=== PATIENT | female | born 1945 | race Two or more races ===

== ENCOUNTER → 2022-11-14 | Outpatient (CLI) | payer OTHER ==
[2022-11-14 12:13] LABS: Potassium 4.8 mmol/L (3.5-5.1)
[2022-11-14 12:18] LABS: BUN/Creatinine Ratio 12.5 (10.0-20.0)
[2022-11-14 17:03] LABS: Micro Albumin < 5.00 mg/L (0-30.0)
[2022-11-14 17:05] LABS: Creatinine, Urine 11 mg/dL (30.0-125.0)
== END | disposition home or self-care (01) ==
LOC: LAB 10:34
PROVIDERS: ATTEND Family Medicine
DX: I12.9 Hypertensive chronic kidney disease with stage 1 through stage 4 chronic kidney disease, or unspecified chronic kidney disease (principal); E11.22 Type 2 diabetes mellitus with diabetic chronic kidney disease; N18.9 Chronic kidney disease, unspecified; E11.65 Type 2 diabetes mellitus with hyperglycemia; E78.2 Mixed hyperlipidemia
CPT/HCPCS: 36415; 80048; 80061; 82043; 82570; 83036

== ENCOUNTER → 2022-12-28 | Outpatient (CLI) | payer OTHER | END | disposition home or self-care (01) | LOC: LAB 14:36 | PROVIDERS: ATTEND Family Medicine | DX: T78.40XA Allergy, unspecified, initial encounter (principal); X58.XXXA Exposure to other specified factors, initial encounter | CPT/HCPCS: 82785 ==

== ENCOUNTER → 2023-05-19 | Outpatient (CLI) | payer OTHER ==
[2023-05-19 10:33] LABS: Basophils # (auto) 0 10 ^3/uL (0-0.2); Basophils % (auto) 0.5 % (0.0-2.0); Eosinophils # (auto) 0.2 10 ^3/uL (0-0.8); Eosinophils % (auto) 3.8 % (0.0-7.0); Hematocrit 39.7 % (36.0-46.0); Hemoglobin 13.4 g/dL (12.2-16.2); Lymphocytes # (auto) 1.6 10 ^3/uL (0.4-5.4); Lymphocytes % (auto) 30.7 % (10.0-50.0); Mean Corpuscular Hemoglobin 32.1 pg (28.0-32.0); Mean Corpuscular Hgb Conc. 33.8 g/dL (32.0-36.0); Monocytes # (auto) 0.5 10 ^3/uL (0-1.3); Monocytes % (auto) 9.6 % (0.0-12.0); Neutrophils # (auto) 2.8 10 ^3/uL (1.6-8.6); Neutrophils % (auto) 55.4 % (37.0-80.0); Nucleated Red Blood Cells % 0.1 %; Red Blood Cells 4.18 10^6/uL (4.0-5.20); Red Cell Distribution Width 13.6 % (11.8-14.3); White Blood Cell 5.1 10^3/uL (4.4-10.8)
[2023-05-19 10:40] LABS: Urine Bacteria FEW /hpf (None Seen); Urine Blood Negative /uL (Negative); Urine Clarity Clear (Clear); Urine Color Yellow (Yellow); Urine Mucus FEW (None Seen); Urine Protein, UAD Negative (Negative); Urine Specific Gravity 1.022 (1.001-1.035); Urine Urobilinogen Normal (Negative); Urine WBC <1 /hpf (0 - 5)
[2023-05-19 11:06] LABS: Alanine Aminotransferase 26 U/L (7-40); Albumin 4.3 g/dL (3.2-4.8); Alkaline Phosphatase 57 U/L (46-116); Anion Gap 5 (5-15); Aspartate Aminotransferase 30 U/L (13-40); BUN/Creatinine Ratio 15.8 (10.0-20.0); Bilirubin, Total 1.2 mg/dL (0.2-1.0); Blood Urea Nitrogen 12 mg/dL (9-23); Calcium 9.7 mg/dL (8.5-10.1); Carbon Dioxide 27 mmol/L (20-30); Chloride 106 mmol/L (98-107); Cholesterol 146 mg/dL (< 200); Glucose 99 mg/dL (74-106); HDL Cholesterol 62 mg/dL (40-59); LDL Cholesterol 74 mg/dL (< 100); Potassium 4.9 mmol/L (3.5-5.1); Sodium 138 mmol/L (136-145); Total Protein 6.8 g/dL (5.7-8.2); Triglycerides 83 mg/dL (< 150)
[2023-05-21 04:06] LABS: Chlamydia Trachomatis, NAA Negative (Negative); Neisseria gonorrhoeae, NAA Negative (Negative)
== END | disposition home or self-care (01) ==
LOC: LAB 09:55
PROVIDERS: ATTEND Family Medicine
DX: Z00.01 Encounter for general adult medical examination with abnormal findings (principal); E11.628 Type 2 diabetes mellitus with other skin complications
CPT/HCPCS: 36415; 80053; 80061; 81001; 82043; 83036; 84443; 85025; 87086

== ENCOUNTER → 2023-09-12 | Outpatient (CLI) | payer OTHER ==
[2023-09-12 09:27] LABS: Alanine Aminotransferase 18 U/L (7-40); Albumin 4.3 g/dL (3.2-4.8); Alkaline Phosphatase 65 U/L (46-116); Anion Gap 7 (5-15); Aspartate Aminotransferase 15 U/L (13-40); BUN/Creatinine Ratio 10.5 (10.0-20.0); Blood Urea Nitrogen 8 mg/dL (9-23); Calcium 9.9 mg/dL (8.5-10.1); Carbon Dioxide 27 mmol/L (20-30); Chloride 105 mmol/L (98-107); Glucose 146 mg/dL (74-106); LDL Cholesterol 116 mg/dL (< 100); Potassium 5.3 mmol/L (3.5-5.1); Sodium 139 mmol/L (136-145); Triglycerides 152 mg/dL (< 150)
[2023-09-12 09:28] LABS: Bilirubin, Total 0.8 mg/dL (0.2-1.0); Cholesterol 196 mg/dL (< 200); HDL Cholesterol 60 mg/dL (40-59); Total Protein 6.9 g/dL (5.7-8.2)
== END | disposition home or self-care (01) ==
LOC: LAB 08:34
PROVIDERS: ATTEND Family Medicine
DX: I12.9 Hypertensive chronic kidney disease with stage 1 through stage 4 chronic kidney disease, or unspecified chronic kidney disease (principal); E11.22 Type 2 diabetes mellitus with diabetic chronic kidney disease; N18.9 Chronic kidney disease, unspecified; E11.65 Type 2 diabetes mellitus with hyperglycemia; E78.2 Mixed hyperlipidemia
CPT/HCPCS: 36415; 80053; 80061; 83036

== ENCOUNTER → 2023-10-27 | Outpatient (CLI) | payer OTHER ==
[2023-10-27 09:41] LABS: Chloride 105 mmol/L (98-107); Potassium 4.7 mmol/L (3.5-5.1); Sodium 137 mmol/L (136-145)
[2023-10-27 09:42] LABS: Anion Gap 4 (5-15); Calcium 9.7 mg/dL (8.7-10.4); Carbon Dioxide 28 mmol/L (20-30)
[2023-10-27 09:47] LABS: BUN/Creatinine Ratio 12.9 (10.0-20.0); Blood Urea Nitrogen 11 mg/dL (9-23); Glucose 179 mg/dL (74-106); Triglycerides 110 mg/dL (< 150)
[2023-10-27 09:48] LABS: LDL Cholesterol 70 mg/dL (< 100)
[2023-10-27 09:49] LABS: Cholesterol 146 mg/dL (< 200); HDL Cholesterol 61 mg/dL (40-59)
[2023-10-27 10:10] LABS: Creatinine, Urine 41.11 mg/dL (30.0-125.0)
== END | disposition home or self-care (01) ==
LOC: LAB 08:56
PROVIDERS: ATTEND Family Medicine
DX: E11.59 Type 2 diabetes mellitus with other circulatory complications (principal); E78.2 Mixed hyperlipidemia
CPT/HCPCS: 36415; 80048; 80061; 82043; 82570; 83036

== ENCOUNTER → 2024-08-02 | Outpatient (CLI) | payer OTHER ==
[2024-08-02 08:55] LABS: Urine Bacteria None Seen /hpf (None Seen)
[2024-08-02 09:06] LABS: Urine Blood Negative /uL (Negative); Urine Clarity Clear (Clear); Urine Color Yellow (Yellow); Urine Protein, UAD Negative (Negative); Urine Specific Gravity 1.016 (1.001-1.035); Urine Squamous Epithelial Cell FEW /hpf (<5); Urine Urobilinogen Normal (Negative); Urine WBC < 1 /HPF (0-5)
[2024-08-02 09:10] LABS: Basophils # (auto) 0 10 ^3/uL (0-0.2); Basophils % (auto) 0.9 % (0.0-2.0); Eosinophils # (auto) 0.1 10 ^3/uL (0-0.8); Eosinophils % (auto) 3.1 % (0.0-7.0); Hematocrit 42.7 % (36.0-46.0); Hemoglobin 14.5 g/dL (12.2-16.2); Lymphocytes # (auto) 1.6 10 ^3/uL (0.4-5.4); Lymphocytes % (auto) 37.2 % (10.0-50.0); Mean Corpuscular Hemoglobin 32.2 pg (28.0-32.0); Mean Corpuscular Volume 94.7 fL (80.0-100.0); Monocytes # (auto) 0.4 10 ^3/uL (0-1.3); Neutrophils # (auto) 2.1 10 ^3/uL (1.6-8.6); Neutrophils % (auto) 48.8 % (37.0-80.0); Nucleated Red Blood Cells % 0.2 %; Platelet Count (auto) 228 10^3/uL (140-450); Red Blood Cells 4.51 10^6/uL (4.0-5.20); Red Cell Distribution Width 13.2 % (11.8-14.3); White Blood Cell 4.4 10^3/uL (4.4-10.8)
[2024-08-02 09:57] LABS: Creatinine, Urine 61.33 mg/dL (30.0-125.0)
[2024-08-02 10:00] LABS: Alanine Aminotransferase 19 U/L (7-40); Albumin 4.4 g/dL (3.2-4.8); Alkaline Phosphatase 65 U/L (46-116); Anion Gap 6 (5-15); Aspartate Aminotransferase 20 U/L (13-40); BUN/Creatinine Ratio 16.7 (10.0-20.0); Blood Urea Nitrogen 14 mg/dL (9-23); Calcium 10.2 mg/dL (8.7-10.4); Carbon Dioxide 29 mmol/L (20-31); Chloride 103 mmol/L (98-107); Cholesterol 190 mg/dL (< 200); Sodium 138 mmol/L (136-145); Triglycerides 132 mg/dL (< 150)
[2024-08-02 10:01] LABS: Bilirubin, Total 1.1 mg/dL (0.2-1.0)
[2024-08-02 10:10] LABS: Glucose 197 mg/dL (74-106); HDL Cholesterol 63 mg/dL (40-59); LDL Cholesterol 107 mg/dL (< 100)
[2024-08-02 10:14] LABS: Potassium 5.7 mmol/L (3.5-5.1)
[2024-08-04 04:06] LABS: Chlamydia Trachomatis, NAA Negative (Negative); Neisseria gonorrhoeae, NAA Negative (Negative)
== END | disposition home or self-care (01) ==
LOC: LAB 08:43
PROVIDERS: ATTEND Family Medicine
DX: Z11.3 Encounter for screening for infections with a predominantly sexual mode of transmission (principal); Z12.11 Encounter for screening for malignant neoplasm of colon; Z13.89 Encounter for screening for other disorder; E11.42 Type 2 diabetes mellitus with diabetic polyneuropathy; Z00.01 Encounter for general adult medical examination with abnormal findings
CPT/HCPCS: 36415; 80053; 80061; 81001; 82043; 82570; 83036; 84443; 85025; 87086

== ENCOUNTER 2025-01-28 09:14 | Outpatient (CLI) | payer OTHER ==
[2025-01-28 10:24] LABS: Alanine Aminotransferase 24 U/L (7-40); Alkaline Phosphatase 89 U/L (46-116); Anion Gap 9 (5-15); BUN/Creatinine Ratio 18.6 (10.0-20.0); Blood Urea Nitrogen 16 mg/dL (9-23); Calcium 9.6 mg/dL (8.7-10.4); Carbon Dioxide 27 mmol/L (20-31); Chloride 100 mmol/L (98-107); Sodium 136 mmol/L (136-145)
[2025-01-28 10:25] LABS: Total Protein 7.4 g/dL (5.7-8.2)
[2025-01-28 10:26] LABS: Albumin 4.4 g/dL (3.2-4.8); Bilirubin, Total 0.7 mg/dL (0.2-1.0); Cholesterol 178 mg/dL (< 200)
[2025-01-28 10:27] LABS: Glucose 177 mg/dL (74-106); HDL Cholesterol 60 mg/dL (40-59); Potassium 5.1 mmol/L (3.5-5.1); Triglycerides 155 mg/dL (< 150)
[2025-01-28 10:42] LABS: Microalb/Creat Ratio, Urine 65.0
== END 2025-01-28 17:00 | disposition home or self-care (01) ==
LOC: LAB 09:14
PROVIDERS: ATTEND Family Medicine
DX: I12.9 Hypertensive chronic kidney disease with stage 1 through stage 4 chronic kidney disease, or unspecified chronic kidney disease (principal); E11.22 Type 2 diabetes mellitus with diabetic chronic kidney disease; N18.9 Chronic kidney disease, unspecified; E11.65 Type 2 diabetes mellitus with hyperglycemia; E78.2 Mixed hyperlipidemia
CPT/HCPCS: 36415; 80053; 80061; 82043; 82570; 83036

== ENCOUNTER 2025-03-04 09:22 | Emergency (ER) | payer OTHER ==
[~2025-03-04] VITALS: Ht 157.5 cm; Wt 69.5 kg
--- NOTE | 2025-03-04 09:59 | DVH ---
CHEST RADIOGRAPH Indication: CHEST PAIN Technique: Single frontal view of the chest was obtained Comparison: None FINDINGS: Lines and Tubes: None Lungs: No focal consolidation. Pleura: No effusion. No pneumothorax. Cardiomediastinal contours: Unremarkable Bones: No acute osseous abnormality. IMPRESSION: 1. No active cardiopulmonary abnormalities.
[2025-03-04 10:06] LABS: Hematocrit 42.1 % (36.0-46.0); Hemoglobin 14.2 g/dL (12.2-16.2); Mean Corpuscular Hemoglobin 31.7 pg (28.0-32.0); Mean Corpuscular Volume 94.2 fL (80.0-100.0); Nucleated Red Blood Cells % 0.0 %
--- NOTE | 2025-03-04 10:09 | ED.PDOC ---
HPI Comments 79 year old female with PMHx HTN, DM presents to the ED with a chief complaint of chest pain onset today about 3 hours prior to ED arrival. Patient states she was sleeping when she began experiencing chest pain, describes as a heavy pressure sensation, rates pain 8/10. She is currently experiencing shortness of breath worsens with exertion. Patient called PCP, advised to come to ED. Denies fever, chills, nausea, vomiting, diarrhea, dizziness, blurred vision, numbness/tingling. No other symptoms or modifying factors present at this time. Chief Complaint: Chest Pain Time Seen by MD: 10:00 Reviewed Notes: Medications, Allergies Allergies: Coded Allergies: No Known Drug Allergy (Verified Allergy, Unknown, 03/04/25) Information Source: Patient Mode of Arrival: Ambulatory Severity: Moderate Timing: Hours Duration: Since onset Prehospital treatment: None Location: Chest (L) Radiation: No Radiation Quality: Pressure Onset: While Asleep Cardiac Risk Factors: HTN, Diabetes PE Risk Factors: None History of: None Modifying Factors: Nothing Associated Signs and Symptoms: SOB Past Medical History PAST MEDICAL HISTORY: DM, HTN Surgical History: 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 History Family History Family History: Reviewed,noncontributory to illness, No family hx of Cancer, No family hx of DM, No family hx of Heart veda, No family hx of HTN, No family hx ofKidney veda, No family hx of Liver veda, No family hx of Lung veda, No family hx of Stroke Social History Smoker: Non-Smoker Alcohol: Denies ETOH Use Drugs: Denies Drug Use Lives In: Home Constitutional: denies: chills, diaphoresis, fatigue, fever, malaise, sweats, weakness, others EENTM: denies: blurred vision, double vision, ear bleeding, ear discharge, ear drainage, ear pain, ear ringing, eye pain, eye redness, hearing loss, mouth pain, mouth swelling, nasal discharge, nose bleeding, nose congestion, nose pain, photophobia, tearing, throat pain, throat swelling, voice changes, others Respiratory: reports: shortness of breath; denies: cough, hemoptysis, orthopnea, SOB at rest, SOB with excertion, stridor, wheezing, others Cardiovascular: reports: chest pain; denies: dizzy spells, diaphoresis, Dyspnea on exertion, edema, irregular heart beat, left arm pain, lightheadedness, palpitations, PND, syncope, others Gastrointestinal: denies: abdomen distended, abdominal pain, blood streaked bowels, constipated, diarrhea, dysphagia, difficulty swallowing, hematemesis, melena, nausea, poor appetite, poor fluid intake, rectal bleeding, rectal pain, vomiting, others Genitourinary: denies: abnormal vagina bleeding, burning, dyspareunia, dysuria, flank pain, frequency, hematuria, incontinence, pain, , vagina discharge, urgency, others Neurological: denies: dizziness, fainting, headache, left sided numbness, left sided weakness, numbness, paresthesia, pre-existing deficit, right sided numbness, right sided weakness, seizure, speech problems, tingling, tremors, weakness, others Musculoskeletal: denies: back pain, gout, joint pain, joint swelling, muscle pain, muscle stiffness, neck pain, others Integumetry: denies: bruises, change in color, change in hair/nails, dryness, laceration, lesions, lumps, rash, wounds, others Allergic/Immunocompromised: denies: Difficulty Healing, Frequent Infections, Hives, Itching, others Hematologic/Lymphatic: denies: anemia, blood clots, easy bleeding, easy bruising, swollen glands, others Endocrine: denies: excessive hunger, excessive sweating, excessive thirst, excessive urination, flushing, intolerance to cold, intolerance to heat, unexplained weight gain, unexplained weight loss, others Psychiatric: denies: anxiety, bipolar disorder, depression, hopeless, panic disorder, schizophrenia, sleepless, suicidal, others All Other Systems: Reviewed and Negative Physical Exam General Appearance: Moderate Distress, Normal HEENT: Normal ENT Inspection, Pharynx Normal, TMs Normal Neck: Full Range of Motion, Non-Tender, Normal, Normal Inspection Respiratory: Chest Non-Tender, Lungs Clear, No Accessory Muscle Use, No Respiratory Distress, Normal Breath Sounds Cardiovascular: No Edema, No JVD, No Murmur, No Gallop, Normal Peripheral Pulses, Regular Rate/Rhythm Breast Exam: Deferred Gastrointestinal: No Organomegaly, Non Tender, No Pulsatile Mass, Normal Bowel Sounds, Soft Genitalia: Deferred Pelvic: Deferred Rectal: Deferred Extremities: No calf tenderness, Normal capillary refill, Normal inspection, Normal range of motion, Non-tender, No pedal edema Musculoskeletal : Apperance: Normal Neurologic: Alert, potato chip sorter II-XII nml as Tested, No Motor Deficits, Normal Affect, Normal Mood, No Sensory Deficits Cerebellar Function: NOT DONE Reflexes: NOT DONE Skin: Dry, Normal Color, Warm Peripheral Pulses: 3+ Radial (R), 3+ Radial (L) Lymphatic: No Adenopathy Was a procedure done? Was a procedure done?: No CP Differential Dx Differential Diagnosis: A-fib, A-Flutter, Angina, Anxiety / Panic Attack, Atrial Dysrhythmia, Electrolyte Disorder X-Ray, Labs, Meds, VS Vital Signs Date Time Temp Pulse Resp B/P (MAP) Pulse Ox O2 Delivery O2 Flow Rate FiO2 03/04/25 12:01 54 17 149/74 (99) 93 03/04/25 11:29 57 03/04/25 09:27 54 03/04/25 09:26 97.7 55 18 148/68 94 97.7 Lab Test 03/04/25 10:35 03/04/25 09:35 Range/Units Troponin I High Sensitivity < 3 L < 3 L </=34 ng/L White Blood Count 6.3 4.4-10.8 10^3/uL Red Blood Count 4.47 4.0-5.20 10^6/uL Hemoglobin 14.2 12.2-16.2 g/dL Hematocrit 42.1 36.0-46.0 % Mean Corpuscular Volume 94.2 80.0-100.0 fL Mean Corpuscular Hemoglobin 31.7 28.0-32.0 pg Mean Corpuscular Hemoglobin Concent 33.7 32.0-36.0 g/dL Red Cell Distribution Width 13.3 11.8-14.3 % Platelet Count 204 140-450 10^3/uL Mean Platelet Volume 8.1 6.9-10.8 fL Neutrophils (%) (Auto) 61.7 37.0-80.0 % Lymphocytes (%) (Auto) 25.5 10.0-50.0 % Monocytes (%) (Auto) 9.4 0.0-12.0 % Eosinophils (%) (Auto) 2.8 0.0-7.0 % Basophils (%) (Auto) 0.6 0.0-2.0 % Neutrophils # (Auto) 3.9 1.6-8.6 10 ^3/uL Lymphocytes # (Auto) 1.6 0.4-5.4 10 ^3/uL Monocytes # (Auto) 0.6 0-1.3 10 ^3/uL Eosinophils # (Auto) 0.2 0-0.8 10 ^3/uL Basophils # (Auto) 0 0-0.2 10 ^3/uL Nucleated Red Blood Cells 0.0 % Sodium Level 138 136-145 mmol/L Potassium Level 5.1 3.5-5.1 mmol/L Chloride Level 102 98-107 mmol/L Carbon Dioxide Level 29 20-31 mmol/L Anion Gap 7 5-15 Blood Urea Nitrogen 15 9-23 mg/dL Creatinine 0.86 0.550-1.02 mg/dL Glomerular Filtration Rate Calc 70 >90 mL/min BUN/Creatinine Ratio 17.4 10.0-20.0 Serum Glucose 239 H 74-106 mg/dL Calcium Level 10.1 8.7-10.4 mg/dL [place] [id number] Ph: [phone] DIAGNOSTIC IMAGING Diagnostic Imaging Report : [id number] Signed PATIENT: SAMARIA JIANG ACCT: [id number] UNIT: [id number] : 1945 LOC: ER ROOM / BED: / AGE / SEX: 79 / F ADM STATUS: REG ER SERVICE 4 ORDERING PHYSICIAN: BRISA GOVEA MD PROCEDURE(s): CXRP - CHEST PORTABLE REASON: CHEST PAIN ORDER NUMBER(s): [id number], ACCESSION NUMBER(s): [id number] CHEST RADIOGRAPH Indication: CHEST PAIN Technique: Single frontal view of the chest was obtained Comparison: None FINDINGS: Lines and Tubes: None Lungs: No focal consolidation. Pleura: No effusion. No pneumothorax. Cardiomediastinal contours: Unremarkable Bones: No acute osseous abnormality. IMPRESSION: 1. No active cardiopulmonary abnormalities. ATED BY: SARAHI ABARCA Jr., DO DICTATED DATE/TIME: 03/04/25956 SIGNED BY: SARAHI ABARCA Jr., SIGNED DATE/TIME: 11/25/25 0957 CC: Patient alert. Complaining of chest pain. Vitals stable. Answering questions. Chest x-ray reviewed does not show any acute changes. Was given aspirin. Was given nitro. EKG reviewed does not show any acute changes. Explained to the patient. Continue to monitor. Time of 1ST Reevaluation: 10:30 Reevaluation 1ST: Unchanged Patient Education/Counseling: Diagnosis, Treatment, Prognosis Family Education/Counseling: No Family Present SEPSIS Sepsis Screen Date sepsis recognized/suspect: Mar 04, 2025 Time Sepsis recognized/suspect: 925 Recent Procedure: No On Antibiotic Therapy: No Respiratory Rate >20: No Heart Rate >90: No Temp<36 C (96.8 F) or >38.3 C: No SBP <90 or MAP <65 mmHG: No New Acute Mental Status Change: No Is the patient on CPAP, BIPAP,: No Physician Orders Chest Portable (03/04/25 09:35) Electrocardigram (03/04/25 09:30) Troponin-I Hs (03/04/25 12:30) Electrocardigram (03/04/25 12:30) Urinalysis (03/04/25 10:21) Vital Signs Date Time Temp Pulse Resp B/P (MAP) Pulse Ox O2 Delivery O2 Flow Rate FiO2 03/04/25 12:01 54 17 149/74 (99) 93 03/04/25 11:29 57 03/04/25 09:27 54 03/04/25 09:26 97.7 55 18 148/68 94 97.7 Laboratory Tests Test 03/04/25 09:35 White Blood Count 6.3 10^3/uL (4.4-10.8) Departure 1 Departure Time of Disposition: 12:23 Impression: Primary Impression: Chest pain of unknown etiology Disposition: ADMITTED INPATIENT Admit to: Med Surg Condition: Guarded Critical Care Note Critical Care Time?: Yes (90 min-critical care time only) Stability Stability form required: No Heart Score Heart Score: Heart Score Response (Comments) Value History Slightly Suspicious 0 EKG Normal 0 Age >65 2 Risk Factors >3 or Hx ASHD 2 Troponin Normal limit 0 Total 4 I personally scribed for BRISA GOVEA MD ([email or web address]) on 03/04/25 at 10:09. Electronically submitted by Nisha Braden ([email or web address]). I personally scribed for BRISA GOVEA MD ([email or web address]) on 03/04/25 at 11:38. Electronically submitted by Nisha Braden ([email or web address]). BRISA GOVEA MD Mar 04, 2025 10:09
[2025-03-04 10:12] LABS: Chloride 102 mmol/L (98-107); Potassium 5.1 mmol/L (3.5-5.1); Sodium 138 mmol/L (136-145)
[2025-03-04 10:13] LABS: Anion Gap 7 (5-15); Carbon Dioxide 29 mmol/L (20-31)
[2025-03-04 10:14] LABS: Calcium 10.1 mg/dL (8.7-10.4)
[2025-03-04 10:19] LABS: BUN/Creatinine Ratio 17.4 (10.0-20.0); Blood Urea Nitrogen 15 mg/dL (9-23)
[2025-03-04 10:29] LABS: Glucose 239 mg/dL (74-106)
--- NOTE | 2025-03-04 11:57 | ECG ---
[facility] Test Date: 2025-03-04 Test Time: 11:29:53 Pat Name: SAMARIA JIANG Department: ED Room: Gender: F Packing Machine Feeder: LARY : 1945 Requested By: BRISA GOVEA Order Number: [id number] Reading MD: Koko Hernández Measurements Intervals [place] Rate: 57 P: 51 [place]: 192 QRS: -62 QRSD: 106 T: 26 QT: 415 QTc: 404 Interpretive Statements Sinus rhythm LAD, consider left anterior fascicular block Low voltage, precordial leads Nonspecific T abnormalities, anterior leads Electronically Signed On 03-05-2025 17:47:29 PST by Koko Hernández Please click the below link to view image of tracing.
[2025-03-04 12:45] LABS: Urine Protein, UAD Negative (Negative)
[2025-03-04] MEDS: NITROGLYCERIN 0.4 MG SL TAB SL ONE (12:59)
[2025-03-04 14:10] VITALS: BP 154/56; PULSE 61; RESP 18; TEMP 97.8; O2SAT 95
--- NOTE | 2025-03-05 06:54 | ECG ---
[facility] Test Date: 2025-03-04 Test Time: 09:27:31 Pat Name: SAMARIA JIANG Department: ED Room: Gender: F Synthetic Cloth Binding Cutter: ALYCIA : 1945 Requested By: BRISA GOVEA Order Number: [id number] Reading MD: Koko Hernández Measurements Intervals [place] Rate: 54 P: 62 [place]: 191 QRS: -62 QRSD: 110 T: 18 QT: 406 QTc: 385 Interpretive Statements Sinus rhythm LAD, consider left anterior fascicular block Low voltage, precordial leads Abnormal R-wave progression, late transition Nonspecific T abnormalities, anterior leads Electronically Signed On 03-05-2025 17:47:19 PST by Koko Hernández Please click the below link to view image of tracing.
== END 2025-03-04 14:14 | disposition home or self-care (01) ==
LOC: ER 09:22
DX: R07.9 Chest pain, unspecified (principal); E11.9 Type 2 diabetes mellitus without complications; I10 Essential (primary) hypertension; Z90.710 Acquired absence of both cervix and uterus
CPT/HCPCS: 36415; 71045; 80048; 81001; 84484; 85025; 93005